=== PATIENT | male | born 1960 | race Caucasian/White ===

== ENCOUNTER 2017-06-29 11:15 | Inpatient (IN) | payer MEDICARE, MEDICAID ==
[~2017-06-29] VITALS: Ht 175.3 cm; Wt 75.0 kg
[2017-06-29] MEDS ORDERED: LORazepam 2 mg/ml vial IV ONE ×4 (11:25→16:10)
[2017-06-29] MEDS ORDERED: thiamine inj. 100 MG in normal saline 100ml IV soln 99 ML IV ONE (11:30)
[2017-06-29] MEDS ORDERED: phenobarbital inj 260 MG in normal saline 100ml IV soln 99 ML IV STA (11:30)
[2017-06-29] MEDS ORDERED: magnesium 2GM in 50ml NS 50 ML IV ONE (11:30)
[2017-06-29] MEDS ORDERED: ondansetron/PF 4mg/2ml inj IV ONE (11:30)
[2017-06-29] MEDS ORDERED: normal saline 1000ML IV soln IVB ONE (11:30)
[2017-06-29 12:00] LABS: BASOPHILS % (AUTO) 0.2 % (0-1); EOSINOPHILS # (AUTO) 0.1 X10'3 (0-0.9); EOSINOPHILS % (AUTO) 0.7 % (0-6); HEMATOCRIT 39.6 % (42.0-52.0); HEMOGLOBIN 13.5 g/dl (14.0-17.9); LYMPHOCYTES # (AUTO) 3.9 X10'3 (1.1-4.8); LYMPHOCYTES % (AUTO) 20.8 % (21-51); MEAN CORPUSCULAR HEMOGLOBIN 30.1 PG (27.0-31.0); MEAN CORPUSCULAR HGB CONC 34.1 % (33.0-36.5); MEAN CORPUSCULAR VOLUME 88.5 FL (78-98); MEAN PLATELET VOLUME 7.6 FL (7.4-10.4); MONOCYTES # (AUTO) 1.3 X10'3 (0-0.9); MONOCYTES % (AUTO) 6.7 % (2-12); NEUTROPHILS # (AUTO) 13.5 X10'3 (1.8-7.7); NEUTROPHILS % (AUTO) 71.6 % (42-75); PLATELET COUNT 463 X10'3 (140-440); RED BLOOD COUNT 4.48 X10'6 (4.70-6.10); RED CELL DISTRIBUTION WIDTH 12.6 % (11.5-14.5); WHITE BLOOD COUNT 18.9 X10'3 (4.5-11.0)
[2017-06-29 12:06] LABS: ALANINE AMINOTRANSFERASE 30 U/L (12-78); ALBUMIN 4.9 G/DL (3.4-5.0); ALBUMIN/GLOBULIN RATIO 1.2 (1.1-1.5); ALKALINE PHOSPHATASE 81 IU/L (46-116); ANION GAP 40 (8-16); ASPARTATE AMINO TRANSFERASE 30 U/L (10-37); BILIRUBIN,TOTAL 0.6 MG/DL (0.1-1.0); BLOOD UREA NITROGEN 24 MG/DL (7-18); CALCIUM 10.3 MG/DL (8.5-10.1); CHLORIDE 97 MMOL/L (99-107); CREATININE 2.39 MG/DL (0.60-1.10); GLUCOSE 194 MG/DL (70-104); MAGNESIUM 1.9 MG/DL (1.5-2.4); POTASSIUM 3.7 MMOL/L (3.5-5.1); SODIUM 142 MMOL/L (135-145); TOTAL PROTEIN 9.1 G/DL (6.4-8.2); eGFR 28 ML/MIN
[2017-06-29 12:10] LABS: URINE AMPHETAMINE SCREEN NEGATIVE (Neg); URINE BARBITUATE SCREEN NEGATIVE (Neg); URINE BENZODIAZEPINES SCREEN POSITIVE (Neg); URINE CANNABINOID SCREEN NEGATIVE (Neg); URINE COCAINE SCREEN NEGATIVE (Neg); URINE METHADONE SCREEN NEGATIVE (Neg); URINE OPIATE SCREEN POSITIVE (Neg); URINE PHENCYCLIDINE SCREEN NEGATIVE (Neg)
[2017-06-29 12:12] LABS: ETHANOL < 0.010 GM/DL (0.0-0.010); TOTAL CARBON DIOXIDE 5.2 MMOL/L (24-32)
[2017-06-29 12:45] LABS: ABG HCO3 13.3 mmol/L (22.0-26.0); ABG PCO2 (T) 27.8 mmHg (35.0-48.0); ABG PH (T) 7.297 (7.350-7.450); ABG PO2 (T) 83.5 mmHg (83-108); ALLEN'S TEST Positive; FLOW 2 L/min
[2017-06-29 12:46] LABS: ABG BASE EXCESS -11.7 mmol/L (-2.0-3.0); FMetHb 0.2 % (0.3-1.12); FO2Hb 93.8 % (94-100); TOTAL HEMOGLOBIN 12.4 G/dl (14.0-18.0)
[2017-06-29] MEDS ORDERED: BUPIVAcaine/PF 2.5 mg/ml (0.25%) 30ml vial IJ ONE (13:20)
[2017-06-29 14:44] LABS: ALBUMIN 4.3 G/DL (3.4-5.0); ANION GAP 15 (8-16); BLOOD UREA NITROGEN 21 MG/DL (7-18); BUN/CREATININE RATIO 15.7 (5.4-32.0); CALCIUM 9.1 MG/DL (8.5-10.1); CHLORIDE 100 MMOL/L (99-107); CREATININE 1.34 MG/DL (0.60-1.10); GLUCOSE 120 MG/DL (70-104); POTASSIUM 4.4 MMOL/L (3.5-5.1); SODIUM 134 MMOL/L (135-145); eGFR 55 ML/MIN
[2017-06-29 14:47] LABS: ACETAMINOPHEN < 2.0 UG/ML (10-30)
[2017-06-29] MEDS ORDERED: normal saline 1000ml 1,000 ML IV ONE (16:10)
[2017-06-29] MEDS ORDERED: ringers solution, lactated 1000ml IV soln IV ONE (16:10)
[2017-06-29] MEDS: normal saline 1000ml 1,000 ML IV SCH (17:08)
[2017-06-29] MEDS ORDERED: magnesium hydroxide 30ml (MOM) UD suspension PO PRN (17:10)
[2017-06-29] MEDS ORDERED: ondansetron/PF 4mg/2ml inj IV PRN (17:10)
[2017-06-29] MEDS ORDERED: mag hydrox/Alum hydrox/simeth 30ml oral suspension PO PRN (17:10)
[2017-06-29] MEDS ORDERED: haloperidol lactate 5mg/ml inj IM PRN (17:10)
[2017-06-29] MEDS ORDERED: HYDROcodone/acetaminophen 5mg/325mg tablet PO PRN (17:10)
[2017-06-29] MEDS ORDERED: haloperidol 5mg tablet PO PRN (17:10)
[2017-06-29] MEDS ORDERED: acetaminophen 325mg tablet PO PRN ×2 (17:10)
[2017-06-29] MEDS ORDERED: LORazepam 2 mg/ml vial IV PRN (17:10)
[2017-06-29] MEDS ORDERED: loperamide 2mg capsule PO ONE (18:20)
[2017-06-29] MEDS: HYDROcodone/acetaminophen 10/325mg tab PO PRN ×2 (19:28→23:56)
[2017-06-29 22:45] VITALS: BP 143/88
[2017-06-29] MEDS: temazepam 15mg capsule PO PRN (23:56)
[2017-06-30] MEDS: temazepam 15mg capsule PO PRN ×2 (02:12→21:16)
[2017-06-30] MEDS: LORazepam 1 MG tablet PO PRN ×3 (04:59→22:03)
[2017-06-30 05:57] LABS: BASOPHILS % (AUTO) 0 % (0-1); EOSINOPHILS # (AUTO) 0.3 X10'3 (0-0.9); EOSINOPHILS % (AUTO) 1.6 % (0-6); HEMATOCRIT 35.3 % (42.0-52.0); HEMOGLOBIN 12.1 g/dl (14.0-17.9); LYMPHOCYTES # (AUTO) 1.5 X10'3 (1.1-4.8); MEAN CORPUSCULAR HEMOGLOBIN 30.1 PG (27.0-31.0); MEAN CORPUSCULAR HGB CONC 34.4 % (33.0-36.5); MEAN CORPUSCULAR VOLUME 87.5 FL (78-98); MEAN PLATELET VOLUME 7.3 FL (7.4-10.4); MONOCYTES # (AUTO) 1.2 X10'3 (0-0.9); NEUTROPHILS # (AUTO) 12.5 X10'3 (1.8-7.7); NEUTROPHILS % (AUTO) 80.4 % (42-75); PLATELET COUNT 410 X10'3 (140-440); RED BLOOD COUNT 4.03 X10'6 (4.70-6.10); RED CELL DISTRIBUTION WIDTH 12.7 % (11.5-14.5); WHITE BLOOD COUNT 15.5 X10'3 (4.5-11.0)
[2017-06-30 06:00] VITALS: BP 127/75
[2017-06-30 06:20] LABS: ALBUMIN 3.9 G/DL (3.4-5.0); ANION GAP 12 (8-16); BLOOD UREA NITROGEN 15 MG/DL (7-18); BUN/CREATININE RATIO 13.2 (5.4-32.0); CALCIUM 8.5 MG/DL (8.5-10.1); CHLORIDE 101 MMOL/L (99-107); CREATININE 1.14 MG/DL (0.60-1.10); GLUCOSE 97 MG/DL (70-104); POTASSIUM 3.5 MMOL/L (3.5-5.1); SODIUM 139 MMOL/L (135-145); TOTAL CARBON DIOXIDE 26.1 MMOL/L (24-32); eGFR 66 ML/MIN
[2017-06-30] MEDS: normal saline 1000ml 1,000 ML IV SCH ×3 (08:48→23:08)
[2017-06-30] MEDS: HYDROcodone/acetaminophen 10/325mg tab PO PRN ×2 (08:48→19:07)
[2017-06-30 10:00] VITALS: BP 104/60
[2017-06-30] MEDS ORDERED: LORA-269 PO (11:15)
[2017-06-30] MEDS ORDERED: MORP30TA PO (11:16)
[2017-06-30] MEDS ORDERED: SIME125C PO (11:17)
[2017-06-30] MEDS ORDERED: HYDR-569 PO (11:17)
[2017-06-30] MEDS ORDERED: [UNRECOGNIZED DRUG - REMARK] (11:18)
[2017-06-30 14:11] VITALS: BP 100/44
[2017-06-30 18:30] VITALS: BP 98/59
[2017-06-30] MEDS: levetiracetam 250mg tablet PO SCH (19:07)
[2017-06-30 22:00] VITALS: BP 115/69
[2017-07-01] MEDS: LORazepam 1 MG tablet PO PRN ×3 (04:08→22:10)
[2017-07-01 06:00] VITALS: BP 118/76
[2017-07-01 06:17] LABS: ALBUMIN 3.6 G/DL (3.4-5.0); ANION GAP 10 (8-16); BLOOD UREA NITROGEN 13 MG/DL (7-18); BUN/CREATININE RATIO 13.4 (5.4-32.0); CALCIUM 8.5 MG/DL (8.5-10.1); CHLORIDE 106 MMOL/L (99-107); CREATININE 0.97 MG/DL (0.60-1.10); GLUCOSE 96 MG/DL (70-104); POTASSIUM 3.4 MMOL/L (3.5-5.1); SODIUM 141 MMOL/L (135-145); TOTAL CARBON DIOXIDE 24.7 MMOL/L (24-32); eGFR 80 ML/MIN
[2017-07-01 06:43] LABS: BASOPHILS % (AUTO) 0.4 % (0-1); EOSINOPHILS # (AUTO) 0.1 X10'3 (0-0.9); EOSINOPHILS % (AUTO) 0.6 % (0-6); HEMATOCRIT 30.4 % (42.0-52.0); HEMOGLOBIN 10.8 g/dl (14.0-17.9); LYMPHOCYTES # (AUTO) 1.8 X10'3 (1.1-4.8); LYMPHOCYTES % (AUTO) 16.3 % (21-51); MEAN CORPUSCULAR HEMOGLOBIN 30.8 PG (27.0-31.0); MEAN CORPUSCULAR HGB CONC 35.7 % (33.0-36.5); MEAN CORPUSCULAR VOLUME 86.3 FL (78-98); MEAN PLATELET VOLUME 7.7 FL (7.4-10.4); MONOCYTES # (AUTO) 0.9 X10'3 (0-0.9); MONOCYTES % (AUTO) 8.1 % (2-12); NEUTROPHILS # (AUTO) 8.4 X10'3 (1.8-7.7); NEUTROPHILS % (AUTO) 74.6 % (42-75); PLATELET COUNT 361 X10'3 (140-440); RED BLOOD COUNT 3.52 X10'6 (4.70-6.10); RED CELL DISTRIBUTION WIDTH 11.7 % (11.5-14.5); WHITE BLOOD COUNT 11.2 X10'3 (4.5-11.0)
[2017-07-01] MEDS: normal saline 1000ml 1,000 ML IV SCH ×2 (09:08→19:08)
[2017-07-01] MEDS: levetiracetam 250mg tablet PO SCH ×2 (09:15→20:52)
[2017-07-01] MEDS: HYDROcodone/acetaminophen 10/325mg tab PO PRN ×2 (09:16→20:52)
[2017-07-01 10:00] VITALS: BP 105/65
[2017-07-01 10:00] LABS: C DIFF ANTIGEN NEGATIVE (NEGATIVE); C DIFF SPECIMEN=DIARRHEA? ACCEPTABLE; C DIFFICILE TOXINS A&B NEGATIVE (Neg)
[2017-07-01] MEDS ORDERED: magnesium 2GM in 50ml NS 50 ML IV PRN (13:25)
[2017-07-01] MEDS ORDERED: magnesium 4gm in 100ml NS 100 ML IV PRN (13:25)
[2017-07-01] MEDS ORDERED: magnesium Cl slow-release 64mg tablet PO PRN (13:25)
[2017-07-01] MEDS ORDERED: potassium Cl 20 mEq SR tablet PO PRN (13:25)
[2017-07-01] MEDS ORDERED: potassium Cl 40MEQ/NS 500ml 500 ML IV PRN ×2 (13:25)
[2017-07-01] MEDS: potassium Cl 20 mEq SR tablet PO PRN ×3 (13:33→17:33)
[2017-07-01] MEDS ORDERED: loperamide 2mg capsule PO ONE (17:40)
[2017-07-01 18:00] VITALS: BP 119/80
[2017-07-01 19:52] LABS: OCCULT BLOOD STOOL NEGATIVE (Neg)
[2017-07-01 22:00] VITALS: BP 138/83
[2017-07-01] MEDS: temazepam 15mg capsule PO PRN (23:17)
[2017-07-02] MEDS: temazepam 15mg capsule PO PRN (00:49)
[2017-07-02] MEDS: LORazepam 1 MG tablet PO PRN (03:42)
[2017-07-02 05:00] VITALS: BP 126/79
[2017-07-02] MEDS: normal saline 1000ml 1,000 ML IV SCH (05:08)
[2017-07-02 06:00] LABS: BASOPHILS # (AUTO) 0.1 X10'3 (0-0.2); BASOPHILS % (AUTO) 1.5 % (0-1); EOSINOPHILS % (AUTO) 0.2 % (0-6); HEMOGLOBIN 10.9 g/dl (14.0-17.9); LYMPHOCYTES # (AUTO) 1.4 X10'3 (1.1-4.8); LYMPHOCYTES % (AUTO) 15.1 % (21-51); MEAN CORPUSCULAR HGB CONC 34.1 % (33.0-36.5); MEAN CORPUSCULAR VOLUME 87.9 FL (78-98); MEAN PLATELET VOLUME 7.3 FL (7.4-10.4); MONOCYTES # (AUTO) 0.7 X10'3 (0-0.9); MONOCYTES % (AUTO) 7.8 % (2-12); NEUTROPHILS # (AUTO) 6.8 X10'3 (1.8-7.7); NEUTROPHILS % (AUTO) 75.4 % (42-75); PLATELET COUNT 361 X10'3 (140-440); RED BLOOD COUNT 3.64 X10'6 (4.70-6.10); RED CELL DISTRIBUTION WIDTH 12.6 % (11.5-14.5)
[2017-07-02 06:38] LABS: ALBUMIN 3.5 G/DL (3.4-5.0); ANION GAP 13 (8-16); BLOOD UREA NITROGEN 10 MG/DL (7-18); BUN/CREATININE RATIO 12.2 (5.4-32.0); CALCIUM 8.8 MG/DL (8.5-10.1); CHLORIDE 105 MMOL/L (99-107); CREATININE 0.82 MG/DL (0.60-1.10); GLUCOSE 110 MG/DL (70-104); MAGNESIUM 1.7 MG/DL (1.5-2.4); POTASSIUM 3.7 MMOL/L (3.5-5.1); SODIUM 141 MMOL/L (135-145); TOTAL CARBON DIOXIDE 23.1 MMOL/L (24-32); eGFR > 90 ML/MIN
[2017-07-02] MEDS: HYDROcodone/acetaminophen 10/325mg tab PO PRN (08:04)
[2017-07-02] MEDS: levetiracetam 250mg tablet PO SCH (08:04)
[2017-07-02 10:00] VITALS: BP 126/74
[2017-07-02] MEDS ORDERED: LEVE250T PO (14:55)
[2017-07-02] MEDS ORDERED: VALS40TA2 PO (14:55)
[2017-07-02] MEDS ORDERED: MAG30ORA PO (14:55)
== END 2017-07-02 15:56 | disposition home or self-care (01) | DRG 100 ==
LOC: ER 11:15 → OBSVTOIN 17:08 → ED HOLD 17:08 → EDBEDREQ 21:27 → ORTHO 4S 22:40
PROVIDERS: ADMIT Hospitalist; ATTEND Family Medicine
PROC: 00JU3ZZ Inspection of Spinal Canal, Percutaneous Approach (ICD-10-PCS; principal; 2017-06-29)
PROC: 4A10X4Z Monitoring of Central Nervous Electrical Activity, External Approach (ICD-10-PCS; 2017-06-30)
DX: G40.909 Epilepsy, unspecified, not intractable, without status epilepticus (principal); N17.0 Acute kidney failure with tubular necrosis; E87.4 Mixed disorder of acid-base balance; F13.239 Sedative, hypnotic or anxiolytic dependence with withdrawal, unspecified; W18.39XA Other fall on same level, initial encounter; E78.00 Pure hypercholesterolemia, unspecified; E87.6 Hypokalemia; F41.0 Panic disorder [episodic paroxysmal anxiety]; G89.4 Chronic pain syndrome; G97.1 Other reaction to spinal and lumbar puncture; I10 Essential (primary) hypertension; K21.9 Gastro-esophageal reflux disease without esophagitis; K52.9 Noninfective gastroenteritis and colitis, unspecified; M19.90 Unspecified osteoarthritis, unspecified site; R73.9 Hyperglycemia, unspecified; Z87.891 Personal history of nicotine dependence; Y93.89 Activity, other specified; Y92.89 Other specified places as the place of occurrence of the external cause; Y99.8 Other external cause status
CPT/HCPCS: 36415; 36600; 62270; 70450; 80048; 80053; 80305; 80320; 80329; 82272; 82803; 82948; 83036; 83605; 83735; 84145; 85018; 85025; 87040; 87045; 87046; 87070; 87324; 87449; 89055; 93005; 95816; 96361; 96365; 96368; 96375; 96376; 97116; 97162; 99285; A4315; A4353; J2060; J2405; J2560; J3411; J3475; J3490; J7030; J7120